=== PATIENT | female | born 1980 | race Caucasian/White ===

== ENCOUNTER 2022-06-17 12:21 | Outpatient (REF) | payer OTHER, SELFPAY ==
--- NOTE | ~2022-06-17 | XR_ITS ---
EXAMINATION: XR CHEST CLINICAL INFORMATION: Acute bronchitis. COMPARISON: None TECHNIQUE: 2 views of the chest were obtained. FINDINGS: A subtle small opacity seen in the right mid to lower lung field. The left lung is clear. There are no pleural effusions. The heart and mediastinal structures are unremarkable. XR/XR chest 2V IMPRESSION: Subtle small opacity in the right mid to lower lung field suggests the very small infiltrate/atelectasis.
== END 2022-06-17 12:22 | disposition home or self-care (01) ==
LOC: HO.HMGCX 12:21
PROVIDERS: Visit Provider Nurse Practitioner Family
DX: J20.9 Acute bronchitis, unspecified (principal)
CPT/HCPCS: 71046